=== PATIENT | female | born 1970 | race Two or more races ===

== ENCOUNTER 2017-08-05 09:06 | Emergency (ER) | payer SELFPAY ==
[~2017-08-05] VITALS: Ht 152.4 cm; Wt 53.5 kg
[2017-08-05 09:14] VITALS: BP 108/65
== END 2017-08-05 11:21 | disposition home or self-care (01) ==
LOC: ER 09:06
DX: N63.0 Unspecified lump in unspecified breast (principal); R92.2 Inconclusive mammogram
CPT/HCPCS: 76642